=== PATIENT | male | born 1965 | race Caucasian/White ===

== ENCOUNTER 2022-02-26 21:22 | Emergency (ER) | payer OTHER ==
[~2022-02-26] VITALS: Ht 175.3 cm; Wt 72.6 kg
--- NOTE | 2022-02-26 21:22 | NUR ---
Security at bedside for inspection
--- NOTE | 2022-02-26 21:22 | NUR ---
Patient BIB [facility] c/o paranoia. Patient have been ingesting meth x4 days. blood sugar in the field was 103. Patient is a/ox3, is able to walk with steady gait, NAD noted.
--- NOTE | 2022-02-26 21:35 | NUR ---
[facility] unit [facility]1 at bedside
--- NOTE | 2022-02-26 21:39 | NUR ---
PATIENT DENIES SUICIDAL IDEATION, INTENT, OR PLAN. HE HAS BEEN USING METHAMPHETAMINES FOR A WHILE NOW; AND HE JUST HAD INCREASED USE THESE PAST 4 DAYS.
[2022-02-26] MEDS ORDERED: THIAMINE HCL 100 MG TABLET ONE (22:56)
[2022-02-26] MEDS ORDERED: THIAMINE HCL 100 MG TABLET PO ONE (23:00)
[2022-02-27 00:09] LABS: HEMATOCRIT 37.7 % (36.7-47.1); MEAN CORPUSCULAR HEMOGLOBIN 28.6 uug (23.8-33.4); MEAN CORPUSCULAR VOLUME 85.6 fL (73.0-96.2); PLATELET COUNT (AUTO) 340 K/uL (152-348)
[2022-02-27 00:15] LABS: ETHANOL < 3 MG/DL (0-0)
[2022-02-27 00:16] LABS: CARBON DIOXIDE 28 mmol/L (21-32); CHLORIDE 102 mmol/L (98-107); CREATININE 1.3 mg/dL (0.6-1.3); GLUCOSE 164 mg/dL (74-106); POTASSIUM 3.2 mmol/L (3.5-5.1); UREA NITROGEN, BLOOD 32 mg/dL (7-18)
--- NOTE | 2022-02-27 00:16 | NUR ---
requested to the pt 4 times to provide a urine sample. pt is having a hard time to provide a sample. pt is carrying on a conversation with him self. he states he will try his best.
[2022-02-27 00:26] LABS: ALANINE AMINOTRANSFERASE 19 U/L (16-63); ALKALINE PHOSPHATASE 61 U/L (50-136); ASPARTATE AMINOTRANSFERASE 6 U/L (15-37); BILIRUBIN,DIRECT 0.2 mg/dL (0.0-0.2); BILIRUBIN,TOTAL 1.2 mg/dL (0.2-1.0); TOTAL PROTEIN, SERUM 6.7 g/dL (6.4-8.2)
[2022-02-27 00:29] LABS: ACETAMINOPHEN < 2.0 ug/mL (10-30)
[2022-02-27] MEDS ORDERED: POTASSIUM BICARBONATE/CIT AC 25 MEQ TABLET.EFF PO ONE (00:45)
[2022-02-27] MEDS ORDERED: POTASSIUM BICARBONATE/CIT AC 25 MEQ TABLET.EFF ONE (00:48)
[2022-02-27 03:06] LABS: *BILIRUBIN,URIN 1+ (NEGATIVE); *BLOOD, URINE NEGATIVE (NEGATIVE); *CLARITY,URINE CLEAR (CLEAR); *COLOR,URINE YELLOW (YELLOW); *KETONES,URINE 1+ (NEGATIVE); *UROBILINOGEN,URINE 0.2 E.U./dl (NORMAL); LEUKOCYTE ESTERASE ,URINE NEGATIVE (NEGATIVE); NITRITE, URINE NEGATIVE (NEGATIVE); PH,URINE 5.5 (5.0-8.0); UGLUCOSE NEGATIVE (NEGATIVE)
[2022-02-27 03:20] LABS: *AMPHETAMINE, URINE POSITIVE (NEGATIVE); *CANNABINOID, URINE NEGATIVE (NEGATIVE); *COCCAINE, URINE NEGATIVE (NEGATIVE); *OPIATE, URINE NEGATIVE (NEGATIVE); *PHENCYCLIDINE SCREEN,URINE NEGATIVE (NEGATIVE)
--- NOTE | 2022-02-27 03:30 | NUR ---
Patient is calm, coherent, ambulatory with steady gait, cooperative. Dr Norton in room talking with the patient
--- NOTE | 2022-02-27 04:55 | NUR ---
Patient discharged to home in stable condition. Written and verbal after care instructions given. Patient verbalizes understanding of instructions. Stressed follow up or return to ER for worsening s/s. Patient is a/ox4, NAD noted. Patient is able to walk with steady gait
[2022-02-27 04:56] VITALS: BP 136/78
== END 2022-02-27 04:57 | disposition home or self-care (01) ==
LOC: ER 21:24
DX: F15.129 Other stimulant abuse with intoxication, unspecified (principal); E86.0 Dehydration; E87.6 Hypokalemia; R94.31 Abnormal electrocardiogram [ECG] [EKG]
CPT/HCPCS: 36415; 83735; 85025; 93005; G0480